=== PATIENT | female | born 1975 | race Caucasian/White ===

== ENCOUNTER 2021-04-05 09:18 | Outpatient (CLI) | payer BC | END 2021-04-05 09:19 | disposition home or self-care (01) | LOC: CSHMAMMO 09:18 | PROVIDERS: ATTEND Obstetrics & Gynecology | DX: Z12.31 Encounter for screening mammogram for malignant neoplasm of breast (principal) | CPT/HCPCS: 77063; 77067 ==

== ENCOUNTER 2022-04-06 09:07 | Outpatient (CLI) | payer BC | END 2022-04-06 09:08 | disposition home or self-care (01) | LOC: CSHMAMMO 09:07 | PROVIDERS: ATTEND Obstetrics & Gynecology | DX: Z12.31 Encounter for screening mammogram for malignant neoplasm of breast (principal); Z91.89 Other specified personal risk factors, not elsewhere classified | CPT/HCPCS: 77063; 77067 ==